=== PATIENT | female | born 1950 | race Asian ===

== ENCOUNTER 2022-04-29 17:46 | Emergency (ER) | payer MEDICARE, MEDICAID ==
[~2022-04-29] VITALS: Ht 160 cm; Wt 63.5 kg
[2022-04-29 18:15] VITALS: BP_SYST 144
[2022-04-29] MEDS ORDERED: IBUPROFEN 600 MG TABLET PO ONE (19:45)
[2022-04-29] MEDS ORDERED: IBUP-1969 PO (21:09)
[2022-04-29 21:58] VITALS: BP_SYST 155
== END 2022-04-29 21:58 | disposition home or self-care (01) ==
LOC: SED 17:46
DX: S52.611A Displaced fracture of right ulna styloid process, initial encounter for closed fracture (principal); S52.501A Unspecified fracture of the lower end of right radius, initial encounter for closed fracture; I10 Essential (primary) hypertension; W19.XXXA Unspecified fall, initial encounter; Y93.89 Activity, other specified; Y92.89 Other specified places as the place of occurrence of the external cause; Y99.8 Other external cause status
CPT/HCPCS: 99284